=== PATIENT | female | born 1955 | race American Indian/Alaskan Native ===

== ENCOUNTER 2016-11-11 20:53 | Emergency (ER) | payer SELFPAY ==
[2016-11-11 21:01] VITALS: BP 145/97
[2016-11-11] MEDS ORDERED: BENADRYL PO ONE (23:33)
[2016-11-11] MEDS ORDERED: TYLENOL PO ONE (23:33)
--- NOTE | 2016-11-11 23:37 | Emergency Department Report ---
ED ENT HPI - General Chief complaint: Earache Stated complaint: EARACHE Time Seen by Provider: 11/11/16 23:32 Source: patient Mode of arrival: Ambulatory Limitations: No Limitations - History of Present Illness Initial comments: Patient reports bilateral earache and headache with the cough that started 4 days ago. Patient was seen in the ED 2 days ago for the same symptoms, given [id number] prescription, however to no avail MD complaint: ear pain (bilateral) Onset/Timin -: days(s) Location: R ear, L ear, other (headache) Severity: severe Severity scale (0 -10): 10 Quality: aching Consistency: constant Improves with: none Worsens with: movement Context-Epistaxis: other (none) Context- Dental: other (none) Context- Ear: other (none) Associated Symptoms: cough. denies: fever, gum swelling, toothache, pain with swallowing, sore throat, tinnitus, hearing loss, discharge from ear, rhinorrhea - Related Data Home Medications Medication Instructions Recorded Confirmed Last Taken Lisinopril [Zestril] 20 mg PO QDAY 11/09/16 11/09/16 11/09/16 Previous Rx's Medication Instructions Recorded Last Taken Type Carbamide Peroxide 6.5% [Ear Wax 2 - 3 drops OT TID #1 bottle 11/10/16 Unknown Rx Drops] Cetirizine HCl [ZyrTEC] 10 mg PO DAILY #30 capsule 11/11/16 Unknown Rx Fluticasone [Flonase] 1 spray NS QDAY #1 bottle 11/11/16 Unknown Rx Ibuprofen [Motrin 800 MG tab] 800 mg PO Q8HR PRN #30 tablet 11/11/16 Unknown Rx Allergies Allergy/AdvReac Type Severity Reaction Status Date / Time No Known Allergies Allergy Unverified 11/09/16 21:35 ED Dental HPI - General Chief complaint: Earache Stated complaint: EARACHE Source: patient Mode of arrival: Ambulatory Limitations: No Limitations - Related Data Home Medications Medication Instructions Recorded Confirmed Last Taken Lisinopril [Zestril] 20 mg PO QDAY 11/09/16 11/09/16 11/09/16 Previous Rx's Medication Instructions Recorded Last Taken Type Carbamide Peroxide 6.5% [Ear Wax 2 - 3 drops OT TID #1 bottle 11/10/16 Unknown Rx Drops] Cetirizine HCl [ZyrTEC] 10 mg PO DAILY #30 capsule 11/11/16 Unknown Rx Fluticasone [Flonase] 1 spray NS QDAY #1 bottle 11/11/16 Unknown Rx Ibuprofen [Motrin 800 MG tab] 800 mg PO Q8HR PRN #30 tablet 11/11/16 Unknown Rx Allergies Allergy/AdvReac Type Severity Reaction Status Date / Time No Known Allergies Allergy Unverified 11/09/16 21:35 ED Review of Systems ROS: Stated complaint: EARACHE Other details as noted in HPI Constitutional: denies: chills, diaphoresis, fever, malaise, weakness Eyes: denies: eye pain, eye discharge, vision change ENT: ear pain (bilateral). denies: throat pain, dental pain, hearing loss, epistaxis Respiratory: cough. denies: orthopnea, shortness of breath, SOB with exertion, SOB at rest, stridor, wheezing Cardiovascular: denies: chest pain, palpitations, dyspnea on exertion, orthopnea , edema, syncope, paroxysmal nocturnal dyspnea Skin: denies: rash, lesions, change in color, change in hair/nails, pruritus Neurological: headache (frontal). denies: weakness, numbness, paresthesias, confusion, abnormal gait, vertigo ED Past Medical Hx - Past Medical History Hx Hypertension: Yes - Surgical History Past Surgical History?: No - Social History Smoking Status: Current Every Day Smoker Substance Use Type: None - Medications Home Medications: Home Medications Medication Instructions Recorded Confirmed Last Taken Type Lisinopril [Zestril] 20 mg PO QDAY 11/09/16 11/09/16 11/09/16 History Carbamide Peroxide 6.5% [Ear Wax 2 - 3 drops OT TID #1 bottle 11/10/16 Unknown Rx Drops] Cetirizine HCl [ZyrTEC] 10 mg PO DAILY #30 capsule 11/11/16 Unknown Rx Fluticasone [Flonase] 1 spray NS QDAY #1 bottle 11/11/16 Unknown Rx Ibuprofen [Motrin 800 MG tab] 800 mg PO Q8HR PRN #30 tablet 11/11/16 Unknown Rx ED Physical Exam - General Limitations: No Limitations General appearance: alert, in no apparent distress - Head Head exam: Present: atraumatic, normocephalic, normal inspection - Eye Eye exam: Present: normal appearance, PERRL, EOMI Pupils: Present: normal accommodation - ENT ENT exam: Present: normal orophraynx, mucous membranes moist, normal external ear exam, other (swelling to nasal turbinates with watery drainage). Absent: mucous membranes dry - Expanded ENT Exam Expanded Ear exam: Present: normal external inspection, other (tenderness to bilateral preauricular lymph nodes). Absent: auricular hematoma, auricular trauma TM/Canal exam: Cerumen Impaction: Right TM Mouth exam: Present: normal external inspection, tongue normal. Absent: drooling, trismus, muffled voice, tongue elevation, laceration Teeth exam: Present: normal inspection Throat exam: Positive: normal inspection. Negative: tonsillar erythema, tonsillomegaly, tonsillar exudate, R peritonsillar mass, L peritonsillar mass - Neck Neck exam: Present: normal inspection, full ROM. Absent: tenderness, meningismus, lymphadenopathy, thyromegaly - Respiratory Respiratory exam: Present: normal lung sounds bilaterally. Absent: respiratory distress, wheezes, rales, rhonchi, stridor, chest wall tenderness, accessory muscle use, decreased breath sounds, prolonged expiratory - Cardiovascular Cardiovascular Exam: Present: regular rate, normal rhythm, normal heart sounds. Absent: systolic murmur, diastolic murmur, rubs, gallop, clicks, JVD, S3, S4 - Neurological Exam Neurological exam: Present: alert, oriented X3, CN II-XII intact, normal gait, reflexes normal, other (no focal neuro deficits). Absent: motor sensory deficit - Skin Skin exam: Present: warm, dry, intact, normal color. Absent: rash ED Course Vital Signs 11/11/16 20:58 Temperature 98.3 F Pulse Rate 70 Respiratory 16 Rate Blood Pressure 145/97 O2 Sat by Pulse 96 Oximetry - Reevaluation(s) Reevaluation #1: 11/11/16 23:34 analgesic and antihistamine ordered ED Medical Decision Making - Lab Data Vital Signs 11/11/16 20:58 Temperature 98.3 F Pulse Rate 70 Respiratory 16 Rate Blood Pressure 145/97 O2 Sat by Pulse 96 Oximetry - Medical Decision Making During the course of ED, analgesics and antihistamine were ordered. Patient was sent home with prescriptions for ibuprofen, Zyrtec and Flonase, instructed to follow with selective referrals given at discharge, she verbalize understanding - Differential Diagnosis Bilateral Earache, Rhinitis, Upper Resp Infection Critical care attestation.: If time is entered above; I have spent that time in minutes in the direct care of this critically ill patient, excluding procedure time. ED Disposition Clinical Impression: Ear ache Rhinitis Qualifiers: Rhinitis type: unspecified Qualified Code(s): J31.0 - Chronic rhinitis Disposition: DISCHARGED TO HOME OR SELFCARE Is pt being admited?: No Does the pt Need Aspirin: No Condition: Stable Instructions: Allergic Rhinitis (ED), Earache (ED) Additional Instructions: Take medication as directed. No drinking and driving while taking medication. Follow up with the selective referrals given at discharge Prescriptions: Fluticasone [Flonase] 1 spray NS QDAY #1 bottle Ibuprofen [Motrin 800 MG tab] 800 mg PO Q8HR PRN #30 tablet PRN Reason: Pain Cetirizine HCl [ZyrTEC] 10 mg PO DAILY #30 capsule Referrals: GUILHERME GUZMAN MD [Staff Physician] - 3-5 Days JANEL NAVA MD [Staff Physician] - 3-5 Days Forms: Work/School Release Form(ED) Time of Disposition: 23:42
== END 2016-11-12 00:48 | disposition home or self-care (01) ==
LOC: ED 20:53
DX: H92.03 Otalgia, bilateral (principal); J31.0 Chronic rhinitis; I10 Essential (primary) hypertension; F17.200 Nicotine dependence, unspecified, uncomplicated
CPT/HCPCS: 99282

== ENCOUNTER 2017-02-13 09:13 | Outpatient (CLI) | payer OTHER ==
--- NOTE | 2017-02-13 10:23 | Mammography Report ---
Bilateral mammogram: No previous studies are available. CAD study utilized. Findings: 3 mm density is noted approximate 12:00 position left breast. Benign calcification right breast. No microcalcification. Benign axillary nodes. Impression: 3 mm density 12:00 o'clock position. Comparison with previous studies is advised. If previous studies are not available spot magnificent and sonographic examination is recommended. BI-RADS CATEGORY: 0 = Needs additional imaging evaluation ACR BI-RADS MAMMOGRAPHIC CODES: 0 = Needs additional imaging evaluation; 1 = Negative; 2 = Benign; 3 = Probably benign; 4 = Suspicious; 5 = Malignant; 6 = Known biopsy-proven malignancy COMMENT: 1. Dense breast tissue, i.e., adenosis, fibrocystic changes, etc., may obscure an underlying neoplasm. 2. Approximately 10% of cancers are not detected with mammography. 3. A negative mammography report should not delay biopsy if a clinically suspicious mass is present. COMMENT: Patient follow-up letters are generated in [employer]..
== END 2017-02-13 09:14 | disposition home or self-care (01) ==
LOC: MAMMO 09:13
PROVIDERS: ATTEND Family Medicine
DX: Z12.31 Encounter for screening mammogram for malignant neoplasm of breast (principal)
CPT/HCPCS: 77067; G0202

== ENCOUNTER 2017-02-20 09:57 | Outpatient (CLI) | payer OTHER ==
--- NOTE | 2017-02-20 11:20 | Mammography Report ---
BONE DENSITY STUDY: Postmenopausal osteoporosis. DEFINITIONS: BMD = Bone Mineral Density T-score = BMD related to mean peak bone mass of young adult (mean expressed in Standard Deviation) Z-score = Age matched BMD expressed in SD World Health Organization (WHO) Diagnostic Criteria Normal T-score > -1 SD Osteopenia T-score between -1 and -2.4 SD Osteoporosis T-score -2.5 SD or below FINDINGS: The weighted average BMD of lumbar spine L1-L4 is 1.062 with a T-score of 0.1. The weighted average BMD of the left hip is 0.816 with a T-score of -1.0. IMPRESSION: The patient's average T-score is diagnostic for normal bone density and low relative risk for fracture. NOTE: BMD is not the only risk factor for fracture; also consider factors such as the patient's age, risk of falling, previous osteoporotic fracture, family history of osteoporotic fractures, current smoker, and low body weight. Mac's triangle is a region of interest in femur, predominantly of trabecular bone. It is not a true anatomic site, and ISCD does not recommend its use clinically.
== END 2017-02-20 09:58 | disposition home or self-care (01) ==
LOC: MAMMO 09:57
PROVIDERS: ATTEND Emergency Medicine
DX: Z13.820 Encounter for screening for osteoporosis (principal); Z78.0 Asymptomatic menopausal state
CPT/HCPCS: 77080

== ENCOUNTER 2019-02-28 23:30 | Inpatient (IN) | payer OTHER ==
[2019-03-01] MEDS ORDERED: ASPIRIN PO ONE (00:11)
[2019-03-01 00:26] LABS: Basophils # (Auto) 0.1 K/mm3 (0.0-0.1); Basophils % (Auto) 1.2 % (0.0-1.8); Eosinophils # (Auto) 0.1 K/mm3 (0.0-0.4); Eosinophils % (Auto) 1.2 % (0.0-4.3); Hematocrit 37.4 % (30.3-42.9); Hemoglobin 12.2 gm/dl (10.1-14.3); Lymphocytes # (Auto) 3.2 K/mm3 (1.2-5.4); Lymphocytes % (Auto) 43.9 % (13.4-35.0); Mean Corpuscular HGB Conc 33 % (30-34); Mean Corpuscular Volume 88 fl (79-97); Monocytes # (Auto) 0.4 K/mm3 (0.0-0.8); Monocytes % (Auto) 6.1 % (0.0-7.3); Platelet Count 249 K/mm3 (140-440); Red Blood Count 4.24 M/mm3 (3.65-5.03); Red Cell Distribution Width 14.7 % (13.2-15.2)
[2019-03-01 00:48] LABS: BUN/Creatinine Ratio 30; Blood Urea Nitrogen 27 mg/dL (7-17); Calcium 9.7 mg/dL (8.4-10.2); Hemolysis Index 23
--- NOTE | 2019-03-01 01:19 | XRay Report ---
PROCEDURE: XR CHEST 1V AP TECHNIQUE: Chest radiograph single view. HISTORY: Chest Pain COMPARISONS: None . FINDINGS: Heart: Normal. Mediastinum/Vessels: Normal. Lungs/Pleural space: Normal. Bony thorax: No acute osseous abnormality. Life support devices: None. IMPRESSION: No acute cardiopulmonary abnormality. This document is electronically signed by Deric Hernandez MD., March 01 2019 01:18:18 AM ET
[2019-03-01 03:09] LABS: Chol/HDL Ratio 5.05 %; HDL Cholesterol 38 mg/dL (40-59); LDL Cholesterol,Direct 125 mg/dL (50-130)
--- NOTE | 2019-03-01 03:24 | Emergency Department Report ---
HPI - General Chief Complaint: Chest Pain Time Seen by Provider: 03/01/19 03:17 - HPI HPI: 63-year-old -[place] female presents to ED with chest pain, nausea, mid chest, for the past 2 days worse today. The pain is sharp, burning, without radiation. She has been taking Zantac, Tums, without relief. No prior episode of chest pains. No fever, chills or night sweats. Pain is severe, rated 10 out of 10, without diaphoresis or shortness of breath. She does have a past medical history of hypertension, and hyperlipidemia. She is a smoker. ED Past Medical Hx - Past Medical History Previous Medical History?: Yes Hx Hypertension: Yes Additional medical history: Psoriasis - Surgical History Past Surgical History?: No - Social History Smoking Status: Current Every Day Smoker Substance Use Type: None - Medications Home Medications: Home Medications Medication Instructions Recorded Confirmed Last Taken Type Fluticasone [Flonase] 1 spray NS QDAY #1 bottle 11/11/16 Unknown Rx Atenolol [Tenormin] 1 tab PO DAILY 09/11/18 09/12/18 09/11/18 History valACYclovir [Valtrex] 1 tab PO BID PRN 09/11/18 09/12/18 09/11/18 History Losartan/Hydrochlorothiazide 12.5 - 100 mg PO DAILY 09/12/18 09/12/18 09/12/18 History ED Review of Systems ROS: Stated complaint: CHEST PAINS Other details as noted in HPI Comment: All other systems reviewed and negative ENT: throat pain. denies: ear pain Respiratory: denies: cough Cardiovascular: chest pain Endocrine: denies: flushing Physical Exam - Physical Exam Vital Signs: Vital Signs 03/01/19 03/01/19 03/01/19 00:08 02:53 02:56 Temperature 97.5 F L Pulse Rate 77 71 Respiratory 20 15 Rate Blood Pressure 118/83 Physical Exam: Physical Exam: - General Limitations: No Limitations General appearance: alert, in no apparent distress, obese - Head Head exam: Present: atraumatic, normocephalic - Eye Eye exam: Present: normal appearance - ENT ENT exam: Present: mucous membranes moist - Neck Neck exam: Present: normal inspection - Respiratory Respiratory exam: Present: normal lung sounds bilaterally. Absent: respiratory distress - Cardiovascular Cardiovascular Exam: Present: normal rhythm, tachycardia. Absent: systolic murmur, diastolic murmur, rubs, gallop - GI/Abdominal GI/Abdominal exam: Present: soft, normal bowel sounds - Extremities Exam Extremities exam: Present: normal inspection - Back Exam Back exam: Present: normal inspection - Neurological Exam Neurological exam: Present: alert, oriented X3 - Psychiatric Psychiatric exam: normal affect and mood - Skin Skin exam: Present: warm, dry, intact, normal color. Absent: rash ED Course Vital Signs 03/01/19 03/01/19 03/01/19 00:08 02:53 02:56 Temperature 97.5 F L Pulse Rate 77 71 Respiratory 20 15 Rate Blood Pressure 118/83 ED Medical Decision Making - Lab Data Result diagrams: 03/01/19 00:15 03/01/19 00:15 - EKG Data 03/01/19 03:21 EKG shows sinus rhythm rate of 71, atrial premature complexes, low-voltage, posterior infarct, old, prolonged QT interval. - Radiology Data Radiology results: report reviewed - Medical Decision Making [id number] -[place] female with chest pain, elevated troponin, patient will be admitted for further evaluation. Cardiology consult. Critical Care Time: Yes Critical care time in (mins) excluding proc time.: 30 Critical care attestation.: If time is entered above; I have spent that time in minutes in the direct care of this critically ill patient, excluding procedure time. ED Disposition Clinical Impression: Non-STEMI (non-ST elevated myocardial infarction) Disposition: -09 OP ADMIT IP TO THIS HOSP Is pt being admited?: Yes Does the pt Need Aspirin: Yes Condition: Stable Referrals: SHANTEL LANDA [Other] - 3-5 Days
[2019-03-01] MEDS ORDERED: MORPHINE IV PRN (04:25)
[2019-03-01] MEDS ORDERED: ZOFRAN IV PRN (04:26)
[2019-03-01] MEDS ORDERED: TYLENOL PR PRN (04:27)
[2019-03-01 04:29] LABS: Hematocrit 35.3 % (30.3-42.9)
[2019-03-01] MEDS ORDERED: NITROSTAT SL PRN (04:32)
[2019-03-01 04:42] LABS: INR 0.93 (0.87-1.13)
[2019-03-01 04:43] LABS: Partial Thromboplastin Time 26.4 Sec. (24.2-36.6)
[2019-03-01] MEDS ORDERED: KCL 10MEQ/100ML 10 MEQ/100 ML BAG IV ONE (05:15)
[2019-03-01] MEDS: HEPARIN/ 0.45% NACL-25,000 UNIT/500 ML 25,000 UNIT/500 ML BAG IV SCH (06:03)
[2019-03-01] MEDS ORDERED: NACL 0.9% 500 ML 500 ML ONE (06:13)
--- NOTE | 2019-03-01 06:20 | History and Physical Report ---
CHIEF COMPLAINT: Chest pain. HISTORY OF PRESENT ILLNESS: The patient is a 63-year-old female who said she has been having chest pain on and off for about 2 weeks, but the pain became worse in the last 24 to 48 hours. The patient described pain as sharp and burning and located in the retrosternal and precordial area. Pain does not radiate and pain is associated with shortness of breath, diaphoresis and dizziness sometimes. There is no history of nausea or vomiting and pain is not affected by breathing or movement. PAST MEDICAL HISTORY: Pertinent for hypertension. Also, the patient has past medical history of hyperlipidemia and psoriasis. PAST SURGICAL HISTORY: Unremarkable. FAMILY HISTORY: Noncontributory. SOCIAL HISTORY: The patient smoke cigarette, does not drink alcohol and does not use illicit drug. MEDICATIONS: The patient is on Flonase 1 spray nasally every day, atenolol 1 tablet by mouth daily, Valtrex 1 tablet by mouth twice daily, losartan/hydrochlorothiazide 100/12.5 one by mouth daily. ALLERGIES: There are no known drug allergies. REVIEW OF SYSTEMS: CONSTITUTIONAL: There is no fever, no chills. Diaphoresis present. HEENT: There is no headache or sore throat. CARDIOVASCULAR: Chest pain is present. No orthopnea. RESPIRATORY SYSTEM: Shortness of breath is present. There is no cough. GASTROINTESTINAL SYSTEM: There is no nausea, no vomiting, no abdominal pain, diarrhea or constipation. NEUROLOGICAL SYSTEM: There is no numbness. Dizziness is present. No altered mental status. MUSCULOSKELETAL: There is no joint pain or swelling. DERMATOLOGICAL SYSTEM: There is no skin rash or itching. GENITOURINARY SYSTEM: There is dysuria, hematuria or flank pain. Rest of system review is normal. PHYSICAL EXAMINATION: GENERAL: At the time of exam, the patient was found to be alert, oriented x 3, and not in acute distress. VITAL SIGNS: At the initial time of presentation show temperature of 97.5 degrees Fahrenheit, pulse of 77, respirations 20, blood pressure 118/83. HEENT: Pupils to be equal, round, reactive to light and accommodating. Extraocular muscles are intact. NECK: Supple with no JVD or carotid bruit. CARDIOVASCULAR: Showed normal first and second heart sounds with no gallops or murmurs. RESPIRATORY SYSTEM: Show good air entry on both sides of the lungs with no abnormal breath sounds. GASTROINTESTINAL SYSTEM: Show abdomen to be full, soft, nontender with no organomegaly or rigidity. NEUROLOGICAL: Shows no focal deficit. MUSCULOSKELETAL SYSTEM: Show no joint swelling or tenderness. DERMATOLOGICAL SYSTEM: Show no skin rash. GENITOURINARY SYSTEM: Showing no costovertebral angle tenderness. PERTINENT LABORATORY AND IMAGING STUDIES: The patient had chest x-ray done, which shows no acute cardiopulmonary abnormality. The patient's lab results show CBC with normal white count, normal hemoglobin and normal hematocrit with CBC differential showing high lymphocyte count of 43.9%. The patient's coagulation studies were unremarkable. The patient's chemistry showed low potassium level of 3.1, slightly elevated BUN of 27 with normal creatinine and normal GFR of greater than 60. The patient's troponin level is high with a value of 0.090 and the patient's brain natriuretic peptide level came back normal. The patient's lipid panel show low HDL of 38 with slightly elevated triglyceride level of 325. DIAGNOSES: 1. Non-ST elevation myocardial infarction. 2. Hypokalemia. PLAN OF CARE: 1. The patient will be admitted to telemetry. 2. The patient will continue IV heparin per NSTEMI protocol started in the Emergency Room. 3. The patient will be on nitro paste half inch to anterior chest wall q.i.d. and will be on Nitrostat 0.4 mg every 5 minutes as needed for breakthrough chest pain. 4. The patient will have Cardiology consult with Dr. Ximena Dotson because of NSTEMI. 5. The patient will be on aspirin 325 mg by mouth daily and will be on IV morphine 2 mg every 5 minutes as needed for chest pain. 6. The patient will be on IV Zofran 4 mg every 8 hours for nausea and vomiting and will have IV potassium chloride, K-rider with 10 mEq of potassium in 100 mL of normal saline given over 1 hour x 3 doses. 7. The patient will be on Tylenol 650 mg rectally every 4 hours for fever and headache and will be on oxygen by nasal cannula at 2 L per minute. 8. The patient will have cardiac enzymes involving troponin, total CK and CK-MB checked q. 6 hours x 2 more levels. The patient will remain n.p.o. until seen by the it application support analyst. JOB# [id number] OCN/NTS MTDD
[2019-03-01] MEDS: NITRO-BID 2% TP SCH ×4 (07:00→17:17)
[2019-03-01] MEDS: KCL 10MEQ/100ML 10 MEQ/100 ML BAG IV SCH ×2 (07:19→08:46)
[2019-03-01 08:07] LABS: Creatine Kinase MB 15.8 ng/mL (0.0-4.0)
[2019-03-01] MEDS ORDERED: NACL 0.9% 500 ML 500 ML IV ONE (09:18)
[2019-03-01] MEDS ORDERED: ASPIRIN PO SCH (10:00)
--- NOTE | 2019-03-01 10:24 | Consultation ---
History of Present Illness Consult date: 03/01/19 Requesting physician: SUSANNAH OLMOS Consult reason: abnormal cardiac enzymes History of present illness: Patient is a 63-year-old no prior cardiac history but history of hypertension and chronic smoking who presented with on and off epigastric chest pain. She reports she had some mild shortness of breath also. Reports similar symptoms for the past few days. Her symptoms were persistent and consistent to present t o the emergency room. Noted her mildly elevated cardiac enzymes. Currently she is asymptomatic. Past History Past Medical History: hypertension Past Surgical History: No surgical history Social history: smoking Family history: no significant family history Medications and Allergies Allergies Allergy/AdvReac Type Severity Reaction Status Date / Time No Known Allergies Allergy Unverified 11/09/16 21:35 Home Medications Medication Instructions Recorded Confirmed Last Taken Type Fluticasone [Flonase] 1 spray NS QDAY #1 bottle 11/11/16 Unknown Rx Atenolol [Tenormin] 1 tab PO DAILY 09/11/18 09/12/18 09/11/18 History valACYclovir [Valtrex] 1 tab PO BID PRN 09/11/18 09/12/18 09/11/18 History Losartan/Hydrochlorothiazide 12.5 - 100 mg PO DAILY 09/12/18 09/12/18 09/12/18 History Active Meds: Active Medications Acetaminophen (Tylenol) 650 mg ND Q4H PRN PRN Reason: Headache Aspirin (Aspirin) 325 mg PO QDAY [facility] Last Admin: 03/01/19 09:39 Dose: 325 mg Documented by: Heparin Sodium/Sodium Chloride (Heparin/ 0.45% Nacl-25,000 Unit/500 Ml) 25,000 unit in 500 mls @ 20 mls/hr IV TITRATE [facility]; Protocol Last Admin: 03/01/19 06:03 Dose: 1,000 units/hr, 20 mls/hr Documented by: Morphine Sulfate (Morphine) 2 mg IV Q5MIN PRN PRN Reason: Chest Pain unrelieved by NTG Nitroglycerin (Nitrostat) 0.4 mg SL .Q5MIN PRN PRN Reason: Chest Pain Nitroglycerin (Nitro-Bid 2%) 0.5 inch TP QIDNTG [facility]; Protocol Last Admin: 03/01/19 09:39 Dose: 0.5 inch Documented by: Ondansetron HCl (Zofran) 4 mg IV Q8H PRN PRN Reason: Nausea And Vomiting Review of Systems All systems: negative (as mentioned in the H&P) Physical Examination Vital Signs Temp Pulse BP 97.5 F L 77 118/83 03/01/19 00:08 03/01/19 00:08 03/01/19 00:08 Narrative exam: Vitals reviewed GEN: No acute distress noted HEENT: Carotids 2+ NECK: Supple CVS: S1 and S2 heard no significant murmur or gallop noted LUNGS/CHEST: Normal auscultation ABD: Soft nontender Extremities: No edema noted normal color NEURO: Alert moves all all 4 extremities PSY: Stable Results 03/01/19 03:39 03/01/19 00:15 Cardiac Enzymes 03/01/19 Range/Units 06:35 CK-MB (CK-2) 15.8 H (0.0-4.0) ng/mL Coagulation 03/01/19 Range/Units 03:39 PT 13.0 (12.2-14.9) Sec. INR 0.93 (0.87-1.13) APTT 26.4 (24.2-36.6) Sec. Lipids 03/01/19 Range/Units 00:15 Triglycerides 325 H (2-149) mg/dL Cholesterol 192 (50-199) mg/dL HDL Cholesterol 38 L (40-59) mg/dL Cholesterol/HDL Ratio 5.05 % CBC 03/01/19 03/01/19 Range/Units 00:15 03:39 WBC 7.3 (4.5-11.0) K/mm3 RBC 4.24 (3.65-5.03) M/mm3 Hgb 12.2 12.0 (10.1-14.3) gm/dl Hct 37.4 35.3 (30.3-42.9) % Plt Count 249 236 (140-440) K/mm3 Lymph # 3.2 (1.2-5.4) K/mm3 [place] # 0.4 (0.0-0.8) K/mm3 Eos # 0.1 (0.0-0.4) K/mm3 Baso # 0.1 (0.0-0.1) K/mm3 Comprehensive Metabolic Panel 03/01/19 Range/Units 00:15 Sodium 141 (137-145) mmol/L Potassium 3.1 L (3.6-5.0) mmol/L Chloride 99.2 (98-107) mmol/L Carbon Dioxide 28 (22-30) mmol/L BUN 27 H (7-17) mg/dL Creatinine 0.9 (0.7-1.2) mg/dL Glucose 113 H (65-100) mg/dL Calcium 9.7 (8.4-10.2) mg/dL EKG interpretations - Telemetry EKG Rhythm: Sinus Rhythm (nonspecific changes) Assessment and Plan 1. Chest pain and epigastric pain with elevated cardiac enzymes suggestive of non-ST elevation CA 2. Hypertension 3. Tobacco abuse 4. Obesity Plan Agree with aspirin and heparin Start beta blockers and high-intensity statins Start Brilinta Cardiac Sunday
[2019-03-01] MEDS ORDERED: BRILINTA PO ONE (11:00)
[2019-03-01] MEDS: COREG PO SCH ×2 (11:50→21:18)
[2019-03-01 14:30] LABS: Creatine Kinase MB 16.5 ng/mL (0.0-4.0)
--- NOTE | 2019-03-01 14:41 | Progress Note ---
Subjective Date of service: 03/01/19 Interval history: Brief progress note This is a second IMS visit of the day Patient seen and examined Patient denies any chest pain or shortness of breath Lab results reviewed Troponin elevated Cardiology note reviewed Patient scheduled for left heart catheterization on Sunday Will add PPI as the patient has some epigastric tenderness Objective - Constitutional Vitals: Vital Signs - 12hr 03/01/19 03/01/19 03/01/19 02:53 02:56 03:00 Temperature Pulse Rate 71 74 Pulse Rate [ From Monitor] Respiratory 20 15 22 Rate Blood Pressure 124/79 O2 Sat by Pulse 97 Oximetry 03/01/19 03/01/19 03/01/19 03:16 03:30 03:46 Temperature Pulse Rate 71 69 72 Pulse Rate [ From Monitor] Respiratory 15 17 18 Rate Blood Pressure 124/79 109/76 109/76 O2 Sat by Pulse 98 96 94 Oximetry 03/01/19 03/01/19 03/01/19 04:12 04:50 04:54 Temperature Pulse Rate 73 71 80 Pulse Rate [ From Monitor] Respiratory 19 14 Rate Blood Pressure 124/79 124/79 O2 Sat by Pulse 96 99 Oximetry 03/01/19 03/01/19 03/01/19 05:00 05:10 07:00 Temperature Pulse Rate 68 70 70 Pulse Rate [ From Monitor] Respiratory 21 22 Rate Blood Pressure 124/79 124/79 124/79 O2 Sat by Pulse 99 Oximetry 03/01/19 03/01/19 03/01/19 07:59 10:00 11:50 Temperature 98.1 F Pulse Rate 70 69 87 Pulse Rate [ 70 From Monitor] Respiratory 20 20 Rate Blood Pressure 161/115 113/78 O2 Sat by Pulse 100 100 Oximetry 03/01/19 03/01/19 12:44 13:58 Temperature 97.9 F Pulse Rate 70 74 Pulse Rate [ From Monitor] Respiratory 18 Rate Blood Pressure 124/86 123/79 O2 Sat by Pulse 97 Oximetry - Labs CBC & Chem 7: 03/01/19 03:39 03/01/19 00:15 Labs: Abnormal lab results 03/01/19 03/01/19 03/01/19 Range/Units 00:15 00:15 02:59 Lymph % (Auto) 43.9 H (13.4-35.0) % Potassium 3.1 L (3.6-5.0) mmol/L BUN 27 H (7-17) mg/dL Glucose 113 H (65-100) mg/dL Total Creatine Kinase (30-135) units/L CK-MB (CK-2) (0.0-4.0) ng/mL CK-MB (CK-2) Rel Index (0-4) Troponin T 0.078 H 0.090 H (0.00-0.029) ng/mL Triglycerides 325 H (2-149) mg/dL HDL Cholesterol 38 L (40-59) mg/dL 03/01/19 03/01/19 03/01/19 Range/Units 06:35 06:35 13:09 Lymph % (Auto) (13.4-35.0) % Potassium (3.6-5.0) mmol/L BUN (7-17) mg/dL Glucose (65-100) mg/dL Total Creatine Kinase 269 H (30-135) units/L CK-MB (CK-2) 15.8 H 16.5 H (0.0-4.0) ng/mL CK-MB (CK-2) Rel Index 5.8 H (0-4) Troponin T 0.139 H* D 0.151 H* (0.00-0.029) ng/mL Triglycerides (2-149) mg/dL HDL Cholesterol (40-59) mg/dL
[2019-03-01] MEDS: PROTONIX PO SCH (15:02)
[2019-03-01] MEDS: BRILINTA PO SCH (21:18)
[2019-03-01] MEDS: SENOKOT S PO PRN (21:19)
[2019-03-02] MEDS: NITRO-BID 2% TP SCH ×4 (06:10→17:14)
[2019-03-02 07:10] LABS: Calcium 9.1 mg/dL (8.4-10.2)
[2019-03-02] MEDS: HEPARIN/ 0.45% NACL-25,000 UNIT/500 ML 25,000 UNIT/500 ML BAG IV SCH ×2 (08:07→15:27)
[2019-03-02] MEDS: BABY ASPIRIN PO SCH (10:02)
[2019-03-02] MEDS: BRILINTA PO SCH ×2 (10:02→21:11)
[2019-03-02] MEDS: PROTONIX PO SCH (10:02)
--- NOTE | 2019-03-02 10:24 | Progress Note ---
Assessment and Plan 1. Non-ST elevation [place] 2. Hypertension 3. Tobacco abuse 4. Obesity Plan Continue current guideline mediated therapy Left heart cath tomorrow Risk benefits discussed with patient Subjective Date of service: 03/02/19 Principal diagnosis: non-ST elevation [place] Interval history: No events overnight Objective Vital Signs Temp Pulse Pulse Pulse Resp BP Pulse Ox 03/02/19 06:10 80 112/93 03/02/19 04:25 97.6 F 80 12 112/93 97 03/01/19 22:53 98.1 F 76 14 118/76 94 03/01/19 22:05 74 74 18 99 03/01/19 21:18 74 131/101 03/01/19 19:23 98.1 F 74 12 131/101 99 03/01/19 19:20 80 03/01/19 17:17 75 137/89 03/01/19 16:53 97.9 F 75 20 137/89 99 03/01/19 13:58 74 123/79 03/01/19 12:44 97.9 F 70 18 124/86 97 03/01/19 11:50 87 113/78 - Physical Examination Narrative exam: Vitals reviewed GEN: No acute distress noted HEENT: Carotids 2+ NECK: Supple CVS: S1 and S2 heard no significant murmur or gallop noted LUNGS/CHEST: Normal auscultation ABD: Soft nontender Extremities: No edema noted normal color NEURO: Alert moves all all 4 extremities PSY: Stable - Labs and Meds Cardiac Enzymes 03/01/19 Range/Units 13:09 CK-MB (CK-2) 16.5 H (0.0-4.0) ng/mL Comprehensive Metabolic Panel 03/02/19 Range/Units 06:37 Sodium 140 (137-145) mmol/L Potassium 3.4 L (3.6-5.0) mmol/L Chloride 100.8 (98-107) mmol/L Carbon Dioxide 25 (22-30) mmol/L BUN 23 H (7-17) mg/dL Creatinine 1.2 (0.7-1.2) mg/dL Glucose 106 H (65-100) mg/dL Calcium 9.1 (8.4-10.2) mg/dL
--- NOTE | 2019-03-02 11:40 | Progress Note ---
Assessment and Plan 1. Non-ST elevation [place] 2. Hypertension 3. Tobacco abuse 4. Obesity Plan Patient seen and examined Patient denies any chest pain or shortness of breath Lab results reviewed Troponin elevated Cardiology note reviewed cont PPI as the patient has some epigastric tenderness Continue current guideline mediated therapy with aspirin/statin/heparin drip, Patient scheduled for left heart catheterization on Sunday Risk benefits discussed with patient and her Son Subjective Date of service: 03/02/19 Principal diagnosis: non-ST elevation [place] Interval history: Patient seen and examined c/o intermittent chest pain but none now No SOB, family at bedside - updated tolerating diet Objective - Constitutional Vitals: Vital Signs - 12hr 03/02/19 03/02/19 03/02/19 04:25 06:10 10:00 Temperature 97.6 F Pulse Rate 80 80 Pulse Rate [ 80 Apical] Pulse Rate [ 80 Left Radial] Pulse Rate [ 80 Right Radial] Respiratory 12 19 Rate Blood Pressure 112/93 112/93 O2 Sat by Pulse 97 99 Oximetry General appearance: Present: no acute distress, well-nourished - EENT Eyes: PERRL, EOM intact ENT: hearing intact, clear oral mucosa Ears: bilateral: normal - Neck Neck: supple, normal ROM - Respiratory Respiratory effort: normal Respiratory: bilateral: CTA - Cardiovascular Rhythm: regular Heart Sounds: Present: S1 & S2. Absent: gallop, rub Extremities: pulses intact, No edema, normal color, Full ROM - Gastrointestinal General gastrointestinal: Present: soft, non-tender, non-distended, normal bowel sounds - Integumentary Integumentary: clear, warm, dry - Musculoskeletal Musculoskeletal: 1, strength equal bilaterally - Neurologic Neurologic: moves all extremities - Psychiatric Psychiatric: memory intact, appropriate mood/affect, intact judgment & insight - Labs CBC & Chem 7: 03/03/19 04:38 03/03/19 04:38 Labs: Abnormal lab results 03/01/19 03/02/19 03/02/19 Range/Units 13:09 06:37 06:37 Heparin Anti-Xa Level 0.71 H (0.3-0.7) U.I./ml Potassium 3.4 L (3.6-5.0) mmol/L BUN 23 H (7-17) mg/dL Glucose 106 H (65-100) mg/dL Total Creatine Kinase 276 H (30-135) units/L CK-MB (CK-2) 16.5 H (0.0-4.0) ng/mL CK-MB (CK-2) Rel Index 5.9 H (0-4) Troponin T 0.221 H* D (0.00-0.029) ng/mL
[2019-03-02] MEDS: SENOKOT S PO PRN (11:43)
[2019-03-02] MEDS ORDERED: NACL 0.9% 500 ML 500 ML IV SCH (12:00)
[2019-03-02] MEDS: LOPRESSOR PO SCH ×2 (12:06→21:11)
[2019-03-02] MEDS ORDERED: BENADRYL PO PRN (16:29)
[2019-03-02] MEDS ORDERED: K-DUR PO ONE (17:00)
[2019-03-03 06:05] LABS: Hematocrit 36.1 % (30.3-42.9); Hemoglobin 11.8 gm/dl (10.1-14.3); Mean Corpuscular HGB Conc 33 % (30-34); Mean Corpuscular Volume 88 fl (79-97); Platelet Count 226 K/mm3 (140-440); Red Blood Count 4.09 M/mm3 (3.65-5.03); Red Cell Distribution Width 14.5 % (13.2-15.2)
[2019-03-03 06:10] LABS: INR 0.94 (0.87-1.13)
[2019-03-03] MEDS: NITRO-BID 2% TP SCH ×2 (06:10→10:23)
[2019-03-03 06:11] LABS: Partial Thromboplastin Time 50.3 Sec. (24.2-36.6)
[2019-03-03 06:21] LABS: BUN/Creatinine Ratio 17; Blood Urea Nitrogen 17 mg/dL (7-17); Calcium 8.7 mg/dL (8.4-10.2); Hemolysis Index 12
[2019-03-03] MEDS ORDERED: HEPARIN/ 0.45% NACL-25,000 UNIT/500 ML 25,000 UNIT/500 ML BAG IV SCH (10:00)
[2019-03-03] MEDS: BABY ASPIRIN PO SCH (10:22)
[2019-03-03] MEDS: LOPRESSOR PO SCH ×3 (10:22→22:23)
[2019-03-03] MEDS: PROTONIX PO SCH (10:22)
[2019-03-03] MEDS: BRILINTA PO SCH ×2 (10:22→22:23)
[2019-03-03] MEDS ORDERED: NACL 0.9% 500 ML 500 ML ONE (11:25)
[2019-03-03] MEDS ORDERED: HEPARIN/NS 5000 UNIT/500ML(CATH LAB) 1,000 ML IR ONE (11:59)
[2019-03-03] MEDS ORDERED: XYLOCAINE 2% INFILTRATI ONE (12:00)
[2019-03-03] MEDS ORDERED: NITROGLYCERIN SYRINGE 3 ML ONE (12:00)
[2019-03-03] MEDS ORDERED: CALAN ONE (12:00)
[2019-03-03] MEDS ORDERED: VERSED ONE (12:11)
[2019-03-03] MEDS ORDERED: SUBLIMAZE ONE (12:11)
[2019-03-03] MEDS: HEPARIN 10,000 UNITS/10 ML ONE ×3 (12:46→13:18)
--- NOTE | 2019-03-03 13:31 | Event Note ---
Date: 03/03/19 Cardiac catheterization revealed a 95% stenosis of the proximal circumflex artery, successful ad hoc coronary angioplasty and stenting, with deployment of a 3.5 mm drug-eluting stent, excellent angiographic result, no complications. Overnight observation post coronary intervention. Stop heparin. Continue baby aspirin, Brilinta, statin, metoprolol and oral long-acting nitrates. Add losartan for hypertension.
--- NOTE | 2019-03-03 14:10 | Cardiac Catherization Report ---
CARDIAC CATHETERIZATION AND CORONARY ANGIOPLASTY REPORT REASON FOR PROCEDURE: Non-ST elevation myocardial infarction. PROCEDURE: 1. Left heart catheterization. 2. Selective left and right coronary angiography. 3. Left ventricle angiography. 4. Angioplasty and coronary stenting of the proximal circumflex. DESCRIPTION OF PROCEDURE: The patient was prepped and draped in a sterile fashion after informed consent. The right radial cath site was prepped and draped after a negative Nate's test. The right radial artery was entered using Seldinger technique followed by placement of a 6-Amharic hydrophilic sheath. Routine radial cocktail was administered via the sheath. Selective left and right coronary angiography was performed using #3.5 left Jerald and #4 right Jerald. The right Jerald was used for left ventricle angiography and the angiograms were reviewed. CORONARY ANGIOGRAPHY: Left main coronary artery was free of significant disease. The left anterior descending artery and diagonal branches contained mild luminal irregularities. The circumflex artery contained a focal, 95-99% stenosis of its proximal AV groove segment. The right coronary artery was dominant and contained mild luminal irregularities. There was normal left ventricular systolic function, ejection fraction 60%. CORONARY ANGIOPLASTY: Ad hoc coronary angioplasty of the circumflex was recommended. We exchanged for a 3.0 XB guiding catheter and advanced to the left coronary ostium. A 0.014 inch [employer] 50 guidewire was then transitioned into the circumflex artery across the lesional segment. Following adequate wire placement, we then performed predilatation balloon angioplasty using a 3.0 mm balloon catheter. A 3.5 x 8 mm Resolute drug-eluting stent was then deployed to the lesion and inflated to optimal pressures. Following stenting, there was an excellent angiographic result, 0 residual stenosis, and CANDICE 3 flow was maintained down the vessel. The wires and the catheters were removed, sheath removed. Hemostasis achieved using a TR band. The patient was returned to the postprocedure unit in stable condition. There were no complications. CONCLUSION: 1. Cardiac catheterization demonstrated an occlusive, 95-99% stenosis of the proximal circumflex artery. 2. Well preserved left ventricular systolic function, ejection fraction 60%. 3. Successful ad hoc angioplasty and stenting of the circumflex with deployment of a 3.5 x 8 mm drug-eluting stent. [facility]# [id number] CA/NTS
[2019-03-03] MEDS: IMDUR PO SCH (15:12)
[2019-03-03] MEDS: COZAAR PO SCH (15:14)
[2019-03-03] MEDS: NACL 0.9% 1000 ML 1,000 ML IV SCH (15:17)
--- NOTE | 2019-03-03 17:08 | Progress Note ---
Assessment and Plan 1. Non-ST elevation [place] 2. Hypertension 3. Tobacco abuse 4. Obesity Plan Patient seen and examined Patient denies any chest pain or shortness of breath Lab results reviewed Troponin was elevated, placed on heparin drip, Cardiology consulted cont PPI as the patient has some epigastric tenderness Continue current guideline mediated therapy with aspirin/statin/brilinta/BB/imdur s/p cardiac cath with stent placement to circumflex, d/percy heparin drip Plan for possible d/c tomorrow when clears by cardiology DVT Px with SCD Brief History: Patient is a 63-year-old no prior cardiac history but history of hypertension and chronic smoking who presented with on and off epigastric chest pain. Noted elevated troponin, placed on heparin drip/aspirin/statin. S/p cardiac cath today with drug eluting stent placement to circumflex artery. Subjective Date of service: 03/03/19 Principal diagnosis: non-ST elevation [place] Interval history: Patient seen and examined s/p cardiac cath today No SOB, family at bedside - updated denies chest pain Objective - Exam Narrative Exam: General appearance: Present: no acute distress, well-nourished - EENT Eyes: PERRL, EOM intact ENT: hearing intact, clear oral mucosa Ears: bilateral: normal - Neck Neck: supple, normal ROM - Respiratory Respiratory effort: normal Respiratory: bilateral: CTA - Cardiovascular Rhythm: regular Heart Sounds: Present: S1 & S2. Absent: gallop, rub Extremities: pulses intact, No edema, normal color, Full ROM - Gastrointestinal General gastrointestinal: Present: soft, non-tender, non-distended, normal bowel sounds - Integumentary Integumentary: clear, warm, dry - Musculoskeletal Musculoskeletal: 1, strength equal bilaterally - Neurologic Neurologic: moves all extremities - Psychiatric Psychiatric: memory intact, appropriate mood/affect, intact judgment & insight - Constitutional Vitals: Vital Signs - 12hr 03/03/19 03/03/19 03/03/19 06:06 06:10 07:33 Temperature 97.2 F L 97.9 F Pulse Rate 60 63 64 Pulse Rate [ Apical] Pulse Rate [ Left Radial] Pulse Rate [ Right Radial] Respiratory 18 16 Rate Blood Pressure 132/93 132/93 142/76 Blood Pressure [Left] O2 Sat by Pulse 100 100 Oximetry 03/03/19 03/03/19 03/03/19 10:00 10:22 10:23 Temperature Pulse Rate 70 70 Pulse Rate [ 64 Apical] Pulse Rate [ 64 Left Radial] Pulse Rate [ 64 Right Radial] Respiratory 19 Rate Blood Pressure 143/95 143/95 Blood Pressure [Left] O2 Sat by Pulse 98 Oximetry 03/03/19 03/03/19 03/03/19 13:45 14:00 14:15 Temperature 98.3 F 98.2 F 98.3 F Pulse Rate 62 61 62 Pulse Rate [ Apical] Pulse Rate [ Left Radial] Pulse Rate [ Right Radial] Respiratory 18 18 18 Rate Blood Pressure Blood Pressure 147/99 157/85 158/92 [Left] O2 Sat by Pulse 99 Oximetry 03/03/19 03/03/19 03/03/19 14:26 14:30 14:54 Temperature 98.3 F Pulse Rate 60 75 72 Pulse Rate [ Apical] Pulse Rate [ Left Radial] Pulse Rate [ Right Radial] Respiratory Rate Blood Pressure 158/102 151/81 Blood Pressure 156/82 [Left] O2 Sat by Pulse 98 99 96 Oximetry 03/03/19 03/03/19 03/03/19 14:55 15:06 15:07 Temperature Pulse Rate 74 Pulse Rate [ Apical] Pulse Rate [ Left Radial] Pulse Rate [ Right Radial] Respiratory Rate Blood Pressure 148/82 136/89 Blood Pressure 148/82 [Left] O2 Sat by Pulse Oximetry 03/03/19 03/03/19 03/03/19 15:08 15:09 15:10 Temperature Pulse Rate 62 67 Pulse Rate [ Apical] Pulse Rate [ Left Radial] Pulse Rate [ Right Radial] Respiratory Rate Blood Pressure 141/80 Blood Pressure 136/89 141/80 [Left] O2 Sat by Pulse Oximetry 03/03/19 03/03/19 03/03/19 15:11 15:12 15:14 Temperature Pulse Rate 81 82 Pulse Rate [ Apical] Pulse Rate [ Left Radial] Pulse Rate [ Right Radial] Respiratory Rate Blood Pressure 153/79 148/82 142/82 Blood Pressure [Left] O2 Sat by Pulse Oximetry 03/03/19 03/03/19 03/03/19 15:15 15:22 15:45 Temperature Pulse Rate 64 61 70 Pulse Rate [ Apical] Pulse Rate [ Left Radial] Pulse Rate [ Right Radial] Respiratory Rate Blood Pressure 142/82 155/91 Blood Pressure 139/77 136/86 [Left] O2 Sat by Pulse 100 Oximetry 03/03/19 03/03/19 03/03/19 16:00 16:06 16:17 Temperature 97.7 F Pulse Rate 79 75 Pulse Rate [ Apical] Pulse Rate [ Left Radial] Pulse Rate [ Right Radial] Respiratory Rate Blood Pressure Blood Pressure 147/83 157/86 [Left] O2 Sat by Pulse Oximetry 03/03/19 16:27 Temperature Pulse Rate 67 Pulse Rate [ Apical] Pulse Rate [ Left Radial] Pulse Rate [ Right Radial] Respiratory Rate Blood Pressure Blood Pressure 152/82 [Left] O2 Sat by Pulse Oximetry - Labs CBC & Chem 7: 03/03/19 04:38 03/03/19 04:38 Labs: Abnormal lab results 03/03/19 03/03/19 Range/Units 04:46 07:12 APTT 50.3 H (24.2-36.6) Sec. Heparin Anti-Xa Level 0.25 L (0.3-0.7) U.I./ml
[2019-03-03] MEDS ORDERED: TYLENOL PO PRN (23:59)
[2019-03-04] MEDS: NACL 0.9% 1000 ML 1,000 ML IV SCH (00:42)
[2019-03-04 04:58] LABS: Basophils % (Auto) 0.4 % (0.0-1.8); Eosinophils # (Auto) 0.2 K/mm3 (0.0-0.4); Eosinophils % (Auto) 2.4 % (0.0-4.3); Hematocrit 34.6 % (30.3-42.9); Hemoglobin 11.5 gm/dl (10.1-14.3); Lymphocytes # (Auto) 2.1 K/mm3 (1.2-5.4); Lymphocytes % (Auto) 32.3 % (13.4-35.0); Mean Corpuscular HGB Conc 33 % (30-34); Mean Corpuscular Volume 89 fl (79-97); Monocytes # (Auto) 0.4 K/mm3 (0.0-0.8); Monocytes % (Auto) 6.6 % (0.0-7.3); Platelet Count 222 K/mm3 (140-440); Red Blood Count 3.89 M/mm3 (3.65-5.03); Red Cell Distribution Width 14.5 % (13.2-15.2)
[2019-03-04 05:12] LABS: Creatine Kinase MB 6.4 ng/mL (0.0-4.0)
[2019-03-04 05:14] LABS: BUN/Creatinine Ratio 18; Blood Urea Nitrogen 20 mg/dL (7-17); Calcium 8.2 mg/dL (8.4-10.2); Hemolysis Index 19
[2019-03-04] MEDS: LOPRESSOR PO SCH ×2 (05:31→13:36)
--- NOTE | 2019-03-04 08:09 | XRay Report ---
AP CHEST :03/04/19 07:25 CLINICAL: Post PCI COMPARISON:03/01/19 FINDINGS: Normal heart and pulmonary vasculature. The lungs are normally expanded and clear. The bones and soft tissues are normal.No tubes or lines. IMPRESSION: Normal chest.
[2019-03-04] MEDS: COZAAR PO SCH (10:00)
[2019-03-04] MEDS: BRILINTA PO SCH (10:00)
[2019-03-04] MEDS: IMDUR PO SCH (10:00)
[2019-03-04] MEDS: PROTONIX PO SCH (10:00)
[2019-03-04] MEDS: BABY ASPIRIN PO SCH (10:00)
--- NOTE | 2019-03-04 11:01 | Progress Note ---
Assessment and Plan NSTEMI s/p PCI of the proximal circumflex artery using drug-eluting stent. EF 60% Hypertension Tobacco abuse Recommendations: Smoking cessation Continue low dose aspirin, Brilinta, statin, metoprolol and oral long-acting nitrates. Stable, cardiac palumbo for discharge today. Patient will f/u with [facility] as scheduled 03/10/19. Subjective Date of service: 03/04/19 Principal diagnosis: non-ST elevation [place] Interval history: Patient is resting in bed and appears comfortable. She denies chest pain and shortness of breath. Dressing applied to right radial cardiac cath site. Marked sinus bradycardia seen on telemetry overnight. It's reported the patient was asleep during the event. Objective Vital Signs Temp Pulse Pulse Resp BP BP Pulse Ox 03/04/19 10:00 67 130/71 03/04/19 08:41 98.5 F 69 16 131/76 97 03/04/19 05:31 70 118/75 03/04/19 05:03 97.8 F 59 L 20 118/75 95 03/04/19 01:27 97.9 F 69 20 105/62 95 03/04/19 00:42 20 03/03/19 22:23 70 129/87 03/03/19 22:00 66 69 99 03/03/19 20:00 98.3 F 68 20 129/87 99 03/03/19 16:27 67 152/82 03/03/19 16:17 75 157/86 03/03/19 16:06 97.7 F 03/03/19 16:00 79 147/83 03/03/19 15:45 70 136/86 03/03/19 15:22 61 155/91 100 03/03/19 15:15 64 142/82 139/77 03/03/19 15:14 82 142/82 03/03/19 15:12 81 148/82 03/03/19 15:11 153/79 03/03/19 15:10 141/80 03/03/19 15:09 67 141/80 03/03/19 15:08 62 136/89 03/03/19 15:07 136/89 03/03/19 15:06 74 148/82 03/03/19 14:55 148/82 03/03/19 14:54 72 151/81 96 03/03/19 14:30 98.3 F 75 156/82 99 03/03/19 14:26 60 158/102 98 03/03/19 14:15 98.3 F 62 18 158/92 99 03/03/19 14:00 98.2 F 61 18 157/85 03/03/19 13:45 98.3 F 62 18 147/99 - Physical Examination General: No Apparent Distress HEENT: Positive: PERRL Neck: Positive: trachea midline Cardiac: Positive: Reg Rate and Rhythm Lungs: Positive: Decreased Breath Sounds Neuro: Positive: Grossly Intact - Labs and Meds Cardiac Enzymes 03/04/19 Range/Units 04:21 CK-MB (CK-2) 6.4 H (0.0-4.0) ng/mL CBC 03/04/19 Range/Units 04:21 WBC 6.6 (4.5-11.0) K/mm3 RBC 3.89 (3.65-5.03) M/mm3 Hgb 11.5 (10.1-14.3) gm/dl Hct 34.6 (30.3-42.9) % Plt Count 222 (140-440) K/mm3 Lymph # 2.1 (1.2-5.4) K/mm3 [place] # 0.4 (0.0-0.8) K/mm3 Eos # 0.2 (0.0-0.4) K/mm3 Baso # 0.0 (0.0-0.1) K/mm3 Comprehensive Metabolic Panel 03/04/19 Range/Units 04:21 Sodium 142 (137-145) mmol/L Potassium 4.0 (3.6-5.0) mmol/L Chloride 105.6 (98-107) mmol/L Carbon Dioxide 25 (22-30) mmol/L BUN 20 H (7-17) mg/dL Creatinine 1.1 (0.7-1.2) mg/dL Glucose 106 H (65-100) mg/dL Calcium 8.2 L (8.4-10.2) mg/dL
--- NOTE | 2019-03-04 12:59 | Discharge Summary ---
Providers - Providers Date of Admission: 03/01/19 04:56 Date of discharge: 03/04/19 Attending physician: NADINE LIN 03/01/19 06:00 Consult to Physician [CONS] Routine Comment: Consulting Provider: MINA TOUSSAINT Physician Instructions: Reason For Exam: NSTEMI 03/03/19 Consult to Cardiac Rehabilitation [CONS] Routine Reason For Exam: post pci Hospitalization Condition: Stable Pertinent studies: Chest x-ray 2-D echo Cardiac cath Hospital course: Brief History: Patient is a 63-year-old female with history of hypertension and chronic smoking who presented with on and off epigastric chest pain. Noted elevated troponin, placed on heparin drip/aspirin/statin, consulted cardiology. S/p cardiac cath 03/03/19 with drug eluting stent placement to circumflex artery. Placed on PPI as the patient has some epigastric tenderness. Patient will Continue current guideline mediated therapy with aspirin/statin/brilinta/BB/imdur. d/c today as cleared by cardiology in stable condition with outpatient follow- up. Discharge diagnosis: 1. Non-ST elevation [place] 2. Hypertension 3. Tobacco abuse 4. Obesity Physical exam - Exam Narrative Exam: General appearance: Present: no acute distress, well-nourished - EENT Eyes: PERRL, EOM intact ENT: hearing intact, clear oral mucosa Ears: bilateral: normal - Neck Neck: supple, normal ROM - Respiratory Respiratory effort: normal Respiratory: bilateral: CTA - Cardiovascular Rhythm: regular Heart Sounds: Present: S1 & S2. Absent: gallop, rub Extremities: pulses intact, No edema, normal color, Full ROM - Gastrointestinal General gastrointestinal: Present: soft, non-tender, non-distended, normal bowel sounds - Integumentary Integumentary: clear, warm, dry - Musculoskeletal Musculoskeletal: 1, strength equal bilaterally - Neurologic Neurologic: moves all extremities - Psychiatric Psychiatric: memory intact, appropriate mood/affect, intact judgment & insight Disposition: DC-01 TO HOME OR SELFCARE Time spent for discharge: 34 minutes Core Measure Documentation - Palliative Care Palliative Care/ Comfort Measures: Not Applicable - Core Measures Any of the following diagnoses?: acute IA - Acute IA Discharge Requirements Aspirin at discharge: Yes DOMINGO/ARB for LVSD if EF <40%: Yes Beta lorie at discharge: Yes Statin for LDL = or >100 mg/dl on DC: Yes Exam - Constitutional Vitals: Temp Pulse Resp BP Pulse Ox 98.5 F 67 16 130/71 97 03/04/19 08:41 03/04/19 10:00 03/04/19 08:41 03/04/19 10:00 03/04/19 08:41 Plan Activity: advance as tolerated Weight Bearing Status: Non-Weight Bearing Diet: low fat, low salt Follow up with: SHANTEL LANDA [Other] - 3-5 Days MINA TOUSSAINT MD [Staff Physician] - 7 Days Prescriptions: AtorvaSTATin [Lipitor] 80 mg PO QHS #30 tablet Aspirin [Aspirin BABY CHEW TAB] 81 mg PO QDAY #30 tab.chew Ticagrelor [Brilinta] 90 mg PO BID #60 tablet Losartan [Cozaar] 50 mg PO QDAY #30 tablet ISOSORBIDE MONOnitrate [Imdur ER] 30 mg PO QDAY #30 tablet Metoprolol [Lopressor TAB] 25 mg PO Q8H #90 tablet Pantoprazole [Protonix TAB] 40 mg PO QDAY #30 tablet
[2019-03-04 15:52] VITALS: BP 106/67
== END 2019-03-04 15:31 | disposition home or self-care (01) | DRG 247 ==
LOC: ED 23:30 → 4A 03-01 04:56
PROVIDERS: ADMIT Internal Medicine; ATTEND Internal Medicine
PROC: 027034Z Dilation of Coronary Artery, One Artery with Drug-eluting Intraluminal Device, Percutaneous Approach (ICD-10-PCS; principal; 2019-03-03)
PROC: 4A023N7 Measurement of Cardiac Sampling and Pressure, Left Heart, Percutaneous Approach (ICD-10-PCS; 2019-03-03)
PROC: B2111ZZ Fluoroscopy of Multiple Coronary Arteries using Low Osmolar Contrast (ICD-10-PCS; 2019-03-03)
PROC: B2151ZZ Fluoroscopy of Left Heart using Low Osmolar Contrast (ICD-10-PCS; 2019-03-03)
DX: I21.4 Non-ST elevation (NSTEMI) myocardial infarction (principal); I10 Essential (primary) hypertension; E66.9 Obesity, unspecified; L40.9 Psoriasis, unspecified; F17.210 Nicotine dependence, cigarettes, uncomplicated; E87.6 Hypokalemia; Z71.6 Tobacco abuse counseling; Z79.899 Other long term (current) drug therapy; Z68.32 Body mass index [BMI] 32.0-32.9, adult
CPT/HCPCS: 36415; 71045; 80048; 80061; 82550; 82553; 82962; 83880; 84484; 85014; 85018; 85025; 85027; 85049; 85347; 85520; 85610; 85730; 92928; 93005; 93010; 93458; 99406; G0378; A9270-GY; C1725; C1769; C1874; C1887; C1894; C9600; J1644; J2250; J3010; J3480; J7030; J7040; Q9967

== ENCOUNTER 2019-06-04 16:40 | Emergency (ER) | payer OTHER ==
[2019-06-04 16:48] VITALS: BP 162/93
--- NOTE | 2019-06-04 18:25 | XRay Report ---
LEFT FOOT 3 VIEWS. LEFT ANKLE 4 VIEWS. INDICATION / CLINICAL INFORMATION: pain COMPARISON: None available. FINDINGS: BONES / JOINT(S): No acute fracture or subluxation. Mild degenerative change greatest at the midfoot. Calcaneal spurring is noted. SOFT TISSUES: No significant abnormality. ADDITIONAL FINDINGS: None. Signer Name: Jose Quesada MD Signed: 06/04/2019 6:21 PM Workstation Name: [id number]
--- NOTE | 2019-06-04 18:25 | Emergency Department Report ---
ED Rash HPI - HPI Chief Complaint: Skin Rash Stated Complaint: RASH ENTIRE BODY Time Seen by Provider: 06/04/19 17:37 Duration: 3 Days Location: Back, Upper Extremities, Lower Extremities Suspected Cause: Unknown Rash Symptoms: Yes Itching, No Facial Swelling, No Tongue/Oral Swelling, No Breathing Difficulties, No Choking Sensation, No Wheezing/Dyspnea, No Peeling, No Blistering, No Fever, No Lightheaded, No Malaise, No Myalgias Severity: mild Other History: This is a 63-year-old female nontoxic, [facility], no acute signs of distress presents to the ED with c/o of generalized rash. She stated that symptoms started after she slipped at work on a new bed. Patient denies any fever, chills, nausea, vomiting, chest, shortness of breath, numbness, tingling. Patient states it is itching. Denies any redness or pain. Patient also has a secondary complaint of left ankle/foot pain. Denies any t rauma. Patient denies any allergies or significant past medical history. ED Review of Systems ROS: Stated complaint: RASH ENTIRE BODY Other details as noted in HPI Constitutional: denies: chills, fever Eyes: denies: eye pain, eye discharge, vision change ENT: denies: ear pain, throat pain Respiratory: denies: cough, shortness of breath, wheezing Cardiovascular: denies: chest pain, palpitations Endocrine: no symptoms reported Gastrointestinal: denies: abdominal pain, nausea, diarrhea Genitourinary: denies: urgency, dysuria, discharge Musculoskeletal: arthralgia. denies: back pain, joint swelling Skin: rash. denies: lesions Neurological: denies: headache, weakness, paresthesias Psychiatric: denies: anxiety, depression Hematological/Lymphatic: denies: easy bleeding, easy bruising ED Past Medical Hx - Past Medical History Hx Hypertension: Yes Hx Heart Attack/AMI: No Hx Congestive Heart Failure: No Hx Diabetes: No Hx Deep Vein Thrombosis: No Hx Pulmonary Embolism: No Hx Asthma: No Hx COPD: No Hx Tuberculosis: No Additional medical history: Psoriasis, heart attack 02/2019 - Surgical History Hx Coronary Stent: No Hx Pacemaker: No Hx Internal Defibrillator: No - Social History Smoking Status: Never Smoker Substance Use Type: Alcohol - Medications Home Medications: Home Medications Medication Instructions Recorded Confirmed Last Taken Type Aspirin [Aspirin BABY CHEW TAB] 81 mg PO QDAY #30 tab.chew 03/04/19 Unknown Rx AtorvaSTATin [Lipitor] 80 mg PO QHS #30 tablet 03/04/19 Unknown Rx ISOSORBIDE MONOnitrate [Imdur ER] 30 mg PO QDAY #30 tablet 03/04/19 Unknown Rx Losartan [Cozaar] 50 mg PO QDAY #30 tablet 03/04/19 Unknown Rx Metoprolol [Lopressor TAB] 25 mg PO Q8H #90 tablet 03/04/19 Unknown Rx Pantoprazole [Protonix TAB] 40 mg PO QDAY #30 tablet 03/04/19 Unknown Rx Ticagrelor [Brilinta] 90 mg PO BID #60 tablet 03/04/19 Unknown Rx Ibuprofen [Motrin] 600 mg PO Q8H PRN #20 tablet 06/04/19 Unknown Rx diphenhydrAMINE [Benadryl CAP] 25 mg PO Q6HR PRN #20 capsule 06/04/19 Unknown Rx Rash Exam - Exam General: Vital signs noted. No distress. Alert and acting appropriately. EXTREMITIES: Without any cyanosis, clubbing, rash, lesions or edema. Peripheral pulses intact. Capillary refill less than 2 seconds. Full range of motion bilaterally. Tenderness to lateral left ankle. No signs of cellulitis. No redness, swelling. HEENT: No Periorbital Edema, No Conjuctival Injection, No Chemosis, No Perioral Edema, No Tongue Edema, No Uvular Edema, No Compromised Airway, No Drooling Lungs: Yes Good Air Exchange (Normal Breath Sounds), No Wheezes, No Ronchi, No Stridor, No Cough, No Labored Respirations, No Retractions, No Use of Accessory Muscles, No Other Abnormal Lung Sounds Heart: Yes Regular, No Murmur Skin: Yes Other ( some erythema with wheal with a central, hemorrhagic punctum.), No Urticarial Rash, No Maculopapular Rash, No Morbilliform rash, No Bulla(e), No Excoriations, No Weeping, No Tenderness, No Erythema, No Edema, No Encrustations Other: Positive: Abdomen Normal, Neurologic Normal, Musculoskeletal Normal ED Course Vital Signs 06/04/19 16:46 Temperature 98 F Pulse Rate 67 Respiratory 19 Rate Blood Pressure 162/93 [Left] O2 Sat by Pulse 99 Oximetry - Reevaluation(s) Reevaluation #1: 06/04/19 18:25 Patient is speaking in full sentences with no signs of distress noted. ED Medical Decision Making - Medical Decision Making This is a 63-year-old female that presents with bed bugs as well as left ankle sprain. Patient is stable and was examined by me. Patient was educated on bedb ugs treatment and prevention. Patient also received printed information on this condition of bedbugs with including treatment, precautions and proper treatment at home. I referred patient to an orthopedic doctor for further evaluation for possible MRI. X-ray has been obtained and dictated by the radiologist. Patient is notified of the x-ray report with noted by the patient. Patient does have n ormal gait with no tenderness and no joint swelling. No ecchymosis. no joint redness or swelling. Not warm to touch. No signs of cellulites present. Patient received Ike wrap. Patient was instructed to RICE therapy. Patient is discharged with Motrin. At time of discharge, the patient does not seem toxic or ill in appearance. No acute signs of distress noted. Patient agrees to discharge treatment plan of care. No further questions noted by the patient. Critical care attestation.: If time is entered above; I have spent that time in minutes in the direct care of this critically ill patient, excluding procedure time. ED Disposition Clinical Impression: Left ankle sprain Qualifiers: Encounter type: initial encounter Involved ligament of ankle: unspecified ligament Qualified Code(s): S93.402A - Sprain of unspecified ligament of left ankle, initial encounter Bed bug bite Qualifiers: Encounter type: initial encounter Qualified Code(s): W57.XXXA - Bitten or stung by nonvenomous insect and other nonvenomous arthropods, initial encounter Disposition: DC-01 TO HOME OR SELFCARE Is pt being admited?: No Does the pt Need Aspirin: No Condition: Stable Instructions: Diphenhydramine (By mouth), Insect Bite or Sting (ED), RICE Therapy (ED) Additional Instructions: Follow-up with a primary care/orthopedic doctor in 3-5 days or if symptoms worsen and continue return to emergency room as soon as possible. Prescriptions: diphenhydrAMINE [Benadryl CAP] 25 mg PO Q6HR PRN #20 capsule PRN Reason: itching Ibuprofen [Motrin] 600 mg PO Q8H PRN #20 tablet PRN Reason: Pain Referrals: RHETT OCASIO MD [Primary Care Provider] - 3-5 Days PRIMARY CAREMD [Referring] - 3-5 Days CHANTELLE RUTHERFORD MD [Staff Physician] - 3-5 Days ELIUD ZAVALA MD [Staff Physician] - 3-5 Days [facility] [Outside] - 3-5 Days Forms: Work/School Release Form(ED)
== END 2019-06-04 18:50 | disposition home or self-care (01) ==
LOC: ED 16:40
DX: S93.402A Sprain of unspecified ligament of left ankle, initial encounter (principal); X58.XXXA Exposure to other specified factors, initial encounter; Y93.89 Activity, other specified; Y92.89 Other specified places as the place of occurrence of the external cause; Y99.8 Other external cause status

== ENCOUNTER 2020-11-29 10:32 | Outpatient (CLI) | payer BC ==
--- NOTE | 2020-11-29 12:32 | Mammography Report ---
DIGITAL SCREENING MAMMOGRAM WITH CAD, 11/29/2020 CLINICAL INFORMATION / INDICATION: Routine screening mammography. SCREENING MAMMO TECHNIQUE: Digital bilateral 2D mammography was obtained in the craniocaudal and mediolateral obliqu e projections. This examination was interpreted with the benefit of Computer-Aided Detection analysis . COMPARISON: 02/13/2017 FINDINGS: Breast Density: There are scattered areas of fibroglandular density. No dominant mass, suspicious calcifications, or architectural distortion in either breast. There is changing, benign-appearing nodularity bilaterally. IMPRESSION: No mammographic evidence of malignancy. Follow up recommendation: Routine yearly BI-RADS Category 2: Benign. A "normal" or negative report should not discourage follow up or biopsy of a clinically significant f inding. A written summary of these findings will be mailed to the patient. The patient will be entered into a mammography reporting system which will generate a reminder letter for the patient's next appointmen t at the appropriate interval. The [employer] recommends yearly mammograms starting at age 40 and continuing as l aileen as a woman is in good health. Breast MRI is recommended for women with an approximate 20-25% or greater lifetime risk of breast cancer, including women with a strong family history of breast or ova beba cancer or who have been treated for Hodgkin's disease. Signer Name: Stephen Hrermann MD Signed: 11/29/2020 12:27 PM Workstation Name: [id number]
== END 2020-11-29 10:33 | disposition home or self-care (01) ==
LOC: MAMMO 10:32
PROVIDERS: ATTEND Internal Medicine
DX: Z12.31 Encounter for screening mammogram for malignant neoplasm of breast (principal)
CPT/HCPCS: 77067

== ENCOUNTER 2021-05-31 12:39 | Outpatient (CLI) | payer BC ==
--- NOTE | 2021-05-31 13:50 | XRay Report ---
BILATERAL ANKLE, 3+ views HISTORY: Bilateral ankle pain. COMPARISON: None. TECHNIQUE: 4 views of the left ankle obtained. FINDINGS: LEFT ANKLE: Bones: No fracture or dislocation. Joint spaces: Maintained. Soft tissues: Moderate size superior calcaneal spur and small plantar calcaneal spur. Mild degenerati ve change along the dorsum of the midfoot. RIGHT ANKLE: Bones: No fracture or dislocation. Joint spaces: Maintained. Soft tissues: Moderate size superior calcaneal spur. IMPRESSION: No evidence of acute osseous injury within the bilateral ankles. The left ankle contains a moderate size superior calcaneal spur with mild degenerative change along t he dorsum of the midfoot. There is a moderate size superior calcaneal spur within the left ankle as w ell. Signer Name: Ethan Bonilla MD Signed: 05/31/2021 1:46 PM Workstation Name: [id number]
== END 2021-05-31 12:40 | disposition home or self-care (01) ==
LOC: XRAY 12:39
PROVIDERS: ATTEND Podiatrist
DX: S89.392A Other physeal fracture of lower end of left fibula, initial encounter for closed fracture (principal); M77.32 Calcaneal spur, left foot; M77.31 Calcaneal spur, right foot; M19.072 Primary osteoarthritis, left ankle and foot; X58.XXXA Exposure to other specified factors, initial encounter; Y93.89 Activity, other specified; Y92.89 Other specified places as the place of occurrence of the external cause; Y99.8 Other external cause status

== ENCOUNTER 2021-06-26 16:05 | Emergency (ER) | payer BC ==
[2021-06-26 17:39] VITALS: BP 159/98
== END 2021-06-26 19:00 | disposition left against medical advice (07) ==
LOC: ED 16:05
DX: M25.562 Pain in left knee (principal); M25.561 Pain in right knee; Z53.21 Procedure and treatment not carried out due to patient leaving prior to being seen by health care provider

== ENCOUNTER 2021-12-06 09:47 | Outpatient (CLI) | payer OTHER ==
--- NOTE | 2021-12-06 18:39 | Mammography Report ---
DIGITAL SCREENING MAMMOGRAM WITH CAD, 12/06/2021 CLINICAL INFORMATION / INDICATION: Routine screening mammography. SCREENING MAMMOGRAM TECHNIQUE: Digital bilateral 2D mammography was obtained in the craniocaudal and mediolateral obliqu e projections. This examination was interpreted with the benefit of Computer-Aided Detection analysis . COMPARISON: 11/29/2020, 02/13/2017. FINDINGS: Breast Density: There are scattered areas of fibroglandular density. No dominant mass, suspicious calcifications, or architectural distortion in either breast. Bilateral benign-appearing nodularity remains. IMPRESSION: No mammographic evidence of malignancy. Follow up recommendation: Routine yearly BI-RADS Category 2: BENIGN. A "normal" or negative report should not discourage follow up or biopsy of a clinically significant f inding. A written summary of these findings will be mailed to the patient. The patient will be entered into a mammography reporting system which will generate a reminder letter for the patient's next appointmen t at the appropriate interval. The [employer] recommends yearly mammograms starting at age 40 and continuing as l aileen as a woman is in good health. Breast MRI is recommended for women with an approximate 20-25% or greater lifetime risk of breast cancer, including women with a strong family history of breast or ova beba cancer or who have been treated for Hodgkin's disease. Signer Name: Jose Quesada MD Signed: 12/06/2021 6:34 PM Workstation Name: [id number]
== END 2021-12-06 09:48 | disposition home or self-care (01) ==
LOC: MAMMO 09:47
PROVIDERS: ATTEND Internal Medicine
DX: Z12.31 Encounter for screening mammogram for malignant neoplasm of breast (principal)
CPT/HCPCS: 77067